=== PATIENT | female | born 1965 | race Caucasian/White ===

== ENCOUNTER 2022-12-06 08:46 | Outpatient (CLI) | payer BC, SELFPAY | END 2022-12-06 08:47 | disposition home or self-care (01) | PROVIDERS: Visit Provider Nurse Practitioner Family | DX: E10.622 Type 1 diabetes mellitus with other skin ulcer (principal); L89.213 Pressure ulcer of right hip, stage 3; E66.01 Morbid (severe) obesity due to excess calories; Z68.43 Body mass index [BMI] 50.0-59.9, adult; Z79.4 Long term (current) use of insulin | CPT/HCPCS: 97597; 99203 ==

== ENCOUNTER 2022-12-14 14:23 | Outpatient (CLI) | payer BC, MEDICARE, SELFPAY | END 2022-12-14 14:24 | disposition home or self-care (01) | LOC: WOUND 14:23 | PROVIDERS: Visit Provider Family Medicine | DX: E10.622 Type 1 diabetes mellitus with other skin ulcer (principal); L89.213 Pressure ulcer of right hip, stage 3; Z79.4 Long term (current) use of insulin | CPT/HCPCS: 97597 ==

== ENCOUNTER 2022-12-21 15:24 | Outpatient (CLI) | payer BC, MEDICARE, SELFPAY | END 2022-12-21 15:25 | disposition home or self-care (01) | LOC: WOUND 15:24 | PROVIDERS: Visit Provider Family Medicine | DX: E10.622 Type 1 diabetes mellitus with other skin ulcer (principal); L89.213 Pressure ulcer of right hip, stage 3; Z96.41 Presence of insulin pump (external) (internal); Z79.4 Long term (current) use of insulin | CPT/HCPCS: 11042 ==

== ENCOUNTER 2023-01-18 14:18 | Outpatient (CLI) | payer BC, MEDICARE, SELFPAY | END 2023-01-18 14:19 | disposition home or self-care (01) | LOC: WOUND 14:19 | PROVIDERS: Visit Provider Nurse Practitioner Family | DX: E10.622 Type 1 diabetes mellitus with other skin ulcer (principal); L89.213 Pressure ulcer of right hip, stage 3; Z79.4 Long term (current) use of insulin | CPT/HCPCS: 99212 ==